=== PATIENT | female | born 1980 | race Two or more races ===

== ENCOUNTER 2016-06-07 01:35 | Day surgery (SDC) | payer MEDICAID ==
[2016-06-07] MEDS ORDERED: IOPAMIDOL 370 (76%) 100 ML VIAL IV ONE (01:36)
[2016-06-07 02:19] LABS: BASO # 0.1 K/mm3 (0.0-0.2); BASO % 0.5 % (0.2-1.0); EOS # 0.2 (0.0-0.5); EOS % 1.4 % (0.9-2.9); HEMATOCRIT 34.6 % (37.0-47.0); HEMOGLOBIN 11.5 gm/l (12.0-16.0); IMM NEUT% 0.3 % (0-1); LYMPH # 3.8 (1.0-4.8); LYMPH % 34.7 % (15-45); MEAN CELL VOLUME 87.4 fl (81.0-99.0); MEAN CORPUSCULAR HGB CONC 33.2 g/dl (33.0-37.0); MEAN PLATELET VOLUME 9.3 fl (7.4-10.4); MONO % 8.8 % (4-12); NEUT % 54.3 % (43-75); PLATELET COUNT 297 K/mm3 (130-400); RED CELL DISTRIBUTION WIDTH 13.8 % (11.5-14.5)
[2016-06-07 02:20] LABS: PH,URINE 6.5 (5.0-8.0); SPECIFIC GRAVITY 1.015 (1.001-1.030); URINE APPEARANCE CLEAR; URINE BILIRUBIN NEGATIVE (NEGATIVE); URINE BLOOD TRACE (NEGATIVE); URINE COLOR YELLOW; URINE GLUCOSE (UA) NEGATIVE (NEGATIVE); URINE LEUKOCYTE ESTERASE NEGATIVE (NEGATIVE); URINE NITRITE NEGATIVE (NEGATIVE); URINE PROTEIN NEGATIVE (NEGATIVE); URINE UROBILINOGEN NORMAL (0-1 mg/dl)
[2016-06-07 02:23] LABS: HCG,QUALITATIVE URINE NEGATIVE
[2016-06-07 02:26] LABS: URINE BACTERIA TRACE; URINE RBC 0-1 /hpf; URINE WBC RARE /hpf
[2016-06-07 02:33] LABS: ALB/GLOB RATIO 1.3 (>1.0); ALBUMIN 3.8 gm/dL (3.5-5.7); CALCIUM 9.1 mg/dL (8.6-10.3)
[2016-06-07] MEDS ORDERED: CEFTRIAXONE 1 GRAM DUPLEX 50 ML IV ONE (04:26)
[2016-06-07] MEDS ORDERED: LACTATED RINGERS 1,000 ML ONE (04:26)
[2016-06-07] MEDS ORDERED: ONDANSETRON 4 MG/2ML 2 ML VIAL ONE ×2 (04:26→10:53)
[2016-06-07] MEDS ORDERED: METRONIDAZOLE 500 MG/NS 100 ML 100 ML IV ONE (04:26)
[2016-06-07] MEDS ORDERED: HYDROMORPHONE HCL 0.5 MG/0.5 ML SYRINGE ONE ×2 (04:26→05:58)
[2016-06-07 05:28] VITALS: BMI 37.3
[2016-06-07] MEDS ORDERED: FLU VACC 2016-17 (36MO-64Y)/PF 60 MCG/0.5 ML SYRINGE IM V ONE (05:31)
[2016-06-07] MEDS ORDERED: MENTHOL/CETYLPYRD 1 EACH LOZENGE PO PRN (05:54)
[2016-06-07] MEDS ORDERED: HYDROMORPHONE HCL 1 MG/ML SYRINGE IV PRN ×3 (05:54→17:23)
[2016-06-07] MEDS ORDERED: LACTATED RINGERS 1,000 ML IV SCH ×2 (05:54→11:45)
[2016-06-07] MEDS ORDERED: ONDANSETRON 4 MG/2ML 2 ML VIAL IV PRN ×3 (05:54→15:00)
[2016-06-07] MEDS ORDERED: BLISTEX LIPSTICK 1 EACH TP PRN (05:54)
[2016-06-07] MEDS ORDERED: ACETAMINOPHEN 650 MG SUP PR PRN (05:54)
[2016-06-07] MEDS ORDERED: METRONIDAZOLE 500 MG/NS 100 ML 500 MG in Premix (NS) 100 ml 1 EACH IV ONE (05:59)
--- NOTE | 2016-06-07 08:31 | CT ---
CT ABDOMEN AND PELVIS WITH CONTRAST HISTORY: Right-sided abdominal pain. TECHNIQUE: Following intravenous administration of 100cc of Isovue-370, contiguous axial images were acquired from the lung bases to the ischial tuberosities. Oral contrast was not administered. COMPARISON: 09/21/2008 FINDINGS: LUNG BASES: No gross airspace consolidation or pleural effusion. LIVER: Fatty infiltration without dominant focal lesion. SPLEEN: No focal lesion. PANCREAS: No focal lesion. ADRENAL GLANDS: No mass effect. KIDNEYS: No collecting system dilatation. Nonobstructive right renal calculus, 4 mm in size. Left renal cyst, 1.3 cm in size. GALLBLADDER: Contracted appearance. BOWEL: Moderate fecal loading. Limited assessment of the distal colon due to decompression. No abnormal small bowel dilatation. APPENDIX: Up to 7 mm in size, fluid-filled without obvious wall thickening or periappendiceal stranding. PELVIC ORGANS: Minimal adnexal cyst formation at the 1.2 cm in size with no dominant lesion. Minimal bladder wall thickening. FREE FLUID: No gross free fluid identified. Anterior abdominal wall: Just above the level of the pubic symphysis notice made of a small focus of skin thickening. Fatty umbilical hernia, increased in size over the interval. ABDOMINOPELVIC LYMPH NODES: No abnormally enlarged lymph nodes identified. ABDOMINAL AORTA: Normal caliber. OSSEOUS STRUCTURES: Findings of lower lumbar disc degeneration, right paracentral protrusion at L4-5. IMPRESSION: 1. Borderline prominence of the appendix without gross inflammatory change; consider follow-up sonography if developing appendicitis is suspected. 2. Minor focus of skin thickening of the anterior abdominal wall seen above the level of the pubic symphysis, early cellulitic change possible. 3. Minor bladder wall thickening, cystitis is possible. 4. Nonobstructive appearance of bowel. Nonobstructive 4 mm right renal calculus. 5. Lower lumbar disc degeneration. 6. Fatty umbilical hernia. Preliminary report relayed to the Emergency Medicine medical service by Dr. Heredia on 06/07/2016 at 0402 hours.
[2016-06-07] MEDS ORDERED: FENTANYL 5 ML ONE (09:39)
[2016-06-07] MEDS ORDERED: MIDAZOLAM HCL 1 MG/ML 2ML VIAL ONE (09:39)
[2016-06-07] MEDS ORDERED: PROPOFOL 20 ML IV ONE (09:41)
[2016-06-07] MEDS ORDERED: ROCURONIUM BROMIDE 10 MG/ML DOSE IV ONE (09:41)
[2016-06-07] MEDS ORDERED: BUPIVACAINE 0.5% W/EPI SDV 30 ML VIAL ONE (09:53)
[2016-06-07] MEDS ORDERED: PRIMARY W/MICRODRIP 60 DROPS/ML ONE (09:55)
[2016-06-07] MEDS ORDERED: GLYCOPYRROLATE 0.2 MG/ML 1ML VIAL ONE (10:39)
[2016-06-07] MEDS ORDERED: NEOSTIGMINE METHYLSULFATE 1 MG/ML DOSE ONE (10:39)
[2016-06-07] MEDS ORDERED: DEXAMETHASONE SOD PHOS 4 MG/1 ML VIAL ONE (10:53)
[2016-06-07] MEDS ORDERED: FENTANYL 100 MCG/2 ML VIAL IV PRN (10:56)
[2016-06-07] MEDS ORDERED: MORPHINE SULFATE 4 MG/ML SYRINGE IV PRN (10:56)
[2016-06-07] MEDS ORDERED: PROMETHAZINE HCL 25 MG/ML VIAL IM PRN (10:56)
[2016-06-07] MEDS ORDERED: KETOROLAC TROMETHAMINE 30 MG/ML 1 ML VIAL ONE (11:18)
[2016-06-07] MEDS ORDERED: ACETAMINOPHEN 325 MG TABLET PO PRN (11:56)
[2016-06-07] MEDS: LACTATED RINGERS 1,000 ML IV SCH (12:14)
[2016-06-07] MEDS: HYDROMORPHONE HCL 0.5 MG/0.5 ML SYRINGE IV PRN ×3 (12:20→13:44)
[2016-06-07] MEDS: KETOROLAC TROMETHAMINE 30 MG/ML 1 ML VIAL IV PRN (19:50)
[2016-06-07] MEDS: OXYCODONE HCL 5 MG TABLET PO PRN (23:18)
[2016-06-08] MEDS: LACTATED RINGERS 1,000 ML IV SCH (03:22)
[2016-06-08] MEDS: KETOROLAC TROMETHAMINE 30 MG/ML 1 ML VIAL IV PRN ×2 (04:00→10:13)
[2016-06-08 07:33] VITALS: BP 110/66
[2016-06-08] MEDS: OXYCODONE HCL 5 MG TABLET PO PRN ×2 (07:39→11:50)
--- NOTE | 2016-06-08 10:09 | PDOC43 ---
- Subjective Subjective: Reports Pain Tolerable, Reports Other (Stayed yesterday because of dizziness, dyspnea. Much better today.), Denies Nausea, Denies Distention - Objective Vital Signs Temperature 97.8 F 06/08/16 07:32 Pulse Rate 69 06/08/16 07:32 Respiratory Rate 16 06/08/16 07:35 Blood Pressure 110/66 06/08/16 07:32 O2 Saturation by Pulse Oximetry 93 06/08/16 07:32 Oxygen Delivery Method Room Air Oxygen Flow Rate 0 Laboratory 06/07/16 02:05 06/07/16 02:05 Active Medication Orders Category Date Time Status Acetaminophen [Tylenol] Med 06/07/16 11:56 Active 650 mg PO Q6H PRN Hydromorphone HCl [Dilaudid] Med 06/07/16 12:05 Active 0.5 - 1 mg IV Q1H PRN Hydromorphone HCl [Dilaudid] Med 06/07/16 17:23 Active 0.5 - 1 mg IV Q1H PRN Ketorolac Tromethamine [Toradol] Med 06/07/16 17:23 Active 30 mg IV Q6H PRN Lactated Ringers 1,000 ml Med 06/07/16 11:56 Active IV 75 mls/hr Ondansetron 4 mg/2ml Vial [Zofran] Med 06/07/16 15:00 Active 4 mg IV Q6H PRN Ondansetron 4 mg/2ml Vial [Zofran] Med 06/07/16 10:56 Active 4 mg IV X1 PRN Oxycodone HCl [Roxicodone] Med 06/07/16 17:23 Active 5 - 10 mg PO Q4H PRN Promethazine HCl [Phenergan] Med 06/07/16 10:56 Active 12.5 - 25 mg IM X1 PRN Sodium Chloride 0.9% Flush [Normal Saline 10ml Flush] Med 06/07/16 12:01 Active 10 ml IV PRN PRN Sodium Chloride 0.9% Flush [Normal Saline 10ml Flush] Med 06/07/16 17:00 Active 10 ml IV Q8HR Intake and Output 06/07/16 06/08/16 06/09/16 06:59 06:59 06:59 Intake Total 200 2841 Output Total 300 2280 Balance -100 561 General: Alert, Oriented x3 Abdomen: Soft, Non-Distended Wound: Dressing Clean/Dry/Intact Psych/Mental Status: Normal Affect - Assessment/ Plan (1) Appendicitis Qualifiers: Appendicitis type: acute appendicitis Status: AcuteAssessment/ Plan: Stable for discharge.
[2016-06-08] MEDS ORDERED: FLU VACC 2016-17 (36MO-64Y)/PF 60 MCG/0.5 ML SYRINGE IM V ONE (10:30)
--- NOTE | 2016-06-08 10:32 | HP ---
ELKE SANDERS [id number] DATE OF ADMISSION: 06/07/2016 CHIEF COMPLAINT: Abdominal pain. HISTORY OF PRESENT ILLNESS: This is a 35-year-old female who presented to the emergency room with a 2 day history of right lower quadrant abdominal pain. Apparently, it has been getting worse. She has had no dysuria, or hematuria. When she did urinate, it causes pressure in her abdomen. She has had no menstrual abnormalities. She was evaluated in the emergency room and a CT scan was obtained. The CT scan was interrupted as possibly early appendicitis. She is noted to have an umbilical hernia. Patient is concerned about appendicitis. Her father had a perforated appendicitis which required him to spend 6 months in the hospital in recuperation. PAST MEDICAL HISTORY: 1. Hypothyroidism. 2. Obesity. PAST SURGICAL HISTORY: None. CURRENT MEDICATIONS: 1. Thyroid medication. 2. Micronesian weight loss medication, but she does not know the name of. ALLERGIES: POSSIBLY PENICILLIN. FAMILY HISTORY: Father with perforated appendicitis. SOCIAL HISTORY: She has not smoked, drink alcohol, or admit to drug use. She is . REVIEW OF SYSTEMS: Constitutional: No complaints. Eyes: No complaints. Ears, nose, throat: No complaints. Cardiac: No complaints. Pulmonary: No complaints. Gastrointestinal: As above. Genitourinary: As above. Gynecologic: No complaints. Musculoskeletal: No complaints. Neurologic: No complaints. Endocrine: No complaints. Hematologic: No complaints. Psychiatric: No complaints. PHYSICAL EXAMINATION: VITAL SIGNS: Temperature is 97.9. Pulse is 75. Blood pressure is 105/63. Respirations are 16. GENERAL: She is awake and alert, appears in no acute distress. HEENT: Head is atraumatic, normocephalic. Eyes: Pupils are equal. Sclera is nonicteric. Oropharynx, no exudate, or erythema seen. NECK: Supple without lymphadenopathy, or thyromegaly. LUNGS: Normal respiratory effort. Lungs clear to auscultation. CARDIAC: Regular rate and rhythm. No murmurs heard. ABDOMEN: Obese. Soft, nondistended. She is tender in the entire right lower quadrant extending from the area above the umbilicus down into the pelvic area. It appears she does not have rebound tenderness, or involuntary guarding. No masses are palpable. I cannot clearly feel the umbilical hernia that I know is present based on CT scan report. She just has minimal generalized tenderness. PELVIC: Exam not performed. RECTAL: Exam not performed. EXTREMITIES: Without cyanosis, clubbing or edema. LABORATORIES: Sodium is 35, potassium 3.6, chloride 100, carbon dioxide is 28, BUN 8, creatinine 0.5, and glucose 114. Liver function tests are normal. White blood cell count is 11. Hemoglobin is 11.5. Platelets are 297. ASSESSMENT: 1. Right lower quadrant abdominal pain possible early appendicitis. 2. Hypothyroid. PLAN: I have discussed the options of observation and antibiotic treatment for possible early appendicitis versus laparoscopic appendectomy. She is very concerned about appendicitis and wants to proceed with surgery. We discussed the procedure. We discussed risks of bleeding, infection, and injury to the intestines. The possibility of a completely normal appendix and possible need to convert to an open procedure. She expressed understanding and is willing to proceed. We will give her antibiotics, and proceed to the operating room when available. JOB #: [id number] [id number]/jesi
[2016-06-08] MEDS ORDERED: KETOROLAC TROMETHAMINE 30 MG/ML 1 ML VIAL IV PRN (11:12)
[2016-06-08] MEDS ORDERED: OXYCODONE HCL 5 MG TABLET PO PRN (11:12)
[2016-06-08] MEDS ORDERED: HYDROMORPHONE HCL 1 MG/ML SYRINGE IV PRN (11:12)
--- NOTE | 2016-06-08 15:14 | OP ---
ELKE SANDERS [id number] DATE OF OPERATION: 06/07/2016 PREOPERATIVE DIAGNOSIS: Right lower quadrant abdominal pain. POSTOPERATIVE DIAGNOSES: 1. Early acute appendicitis. 2. Uterine fibroid. PROCEDURE PERFORMED: Laparoscopic appendectomy. SURGEON: Johan Cantu MD ANESTHESIA: General endotracheal with Flako Sanford INDICATIONS: This is a 35-year-old female who presents with a 2 day history of right lower quadrant abdominal pain. She has leukocytosis and CAT scan suggests an early appendicitis. DESCRIPTION OF PROCEDURE: With informed consent she was taken to the operating room where she was laid supine on the operating room table. General endotracheal anesthetic was administered. The abdomen was prepped and draped in the usual fashion. A local anesthetic was administered below the umbilicus. An incision was made. I dissected down to a hernia sac. This was excised at the level of fascia. There is preperitoneal fat present. Sutures of Surgilon were placed in the fascia edges and a Francesca port was placed. A pneumoperitoneum was created. Local anesthetic was administered in the suprapubic region, also left lower quadrant. Incisions were made, and 5-mm ports were placed. The appendix was identified. There was quite a bit fatty mesenteric tissue around it. I was able to create a defect in the mesentery adjacent to the cecum. An Endo CAT stapler was used to divide the appendix at that point. The mesoappendix was then divided with the Endo CAT stapler. We did have bleeding from the staple line. Some metal clips were required. The appendix was placed within an Endo catch bag and removed through the infraumbilical port site. The right lower quadrant was irrigated. We appeared to have adequate hemostasis. Note was made of some possible uterine fibroids. No significant ovarian cyst, or other cause for right lower quadrant pain identified. Ports were removed and the pneumoperitoneum evacuated. The infraumbilical hernia defect was closed with [id number] sutures of 0-Surgilon in a transverse fashion. The other fascial defects were small. All skin wounds were irrigated and closed with subcuticular #4-0 Monocryl. Mastisol and Steri-Strips were placed. Sterile dressings were applied. She tolerated the procedure, and was taken to the recovery room in stable condition. A note was made that needle, instrument and lap counts were reported as correct at the time of closure. JOB #: [id number]/jesi
--- NOTE | 2016-06-11 12:56 | SURGPATH ---
[facility] [address] [place] [id number] Patient Name: ELKE SANDERS MR#: [id number] : 1980 Gender: F Specimen #: [id number] Collected: 06/07/2016 Received: 06/10/2016 Reported: 06/11/2016 Submitting Phys: MICHAEL SAM Copy To Phys: [facility] Clinical History / Pre-Operative Diagnosis: ACUTE APPENDICITIS Specimen Source / Surgical Procedure Performed: APPENDIX Interpretation: APPENDIX, APPENDECTOMY: - ACUTE APPENDICITIS Electronically Signed Out Gautam Burgess M.D. Gross Description: The specimen is received in a formalin filled container labeled with the patient's name and "appendix". A vermiform appendix is 6.0 x 1.0 cm. The attached focally hemorrhagic periappendiceal fat is 5.5 x 2.0 x 1.7 cm. The serosa is smooth and ludwig. A surgical staple line is removed and the adjacent section is inked black and submitted as margin. The lumen is patent and filled with soft red-ludwig hemorrhagic and purulent material. There is no nodule or fecalith. Three patient access representative sections are submitted in one cassette including a cross section through the appendiceal surgical margin, a central cross section and a longitudinal section through the tip. Otf Chaudhary. Microscopic Description: The sections show appendix with mucosal ulceration and acute inflammation. [id number]: [id number] K35.89
== END 2016-06-08 12:20 | disposition home or self-care (01) ==
LOC: ED 01:35 → SDC 04:22 → MS 04:22 → SDC 06-08 12:20
PROVIDERS: ATTEND Surgery
PROC: 0DTJ4ZZ Resection of Appendix, Percutaneous Endoscopic Approach (ICD-10-PCS; principal; 2016-06-07)
PROC: 3E0234Z Introduction of Serum, Toxoid and Vaccine into Muscle, Percutaneous Approach (ICD-10-PCS; 2016-06-07)
DX: K35.80 Unspecified acute appendicitis (principal); K42.9 Umbilical hernia without obstruction or gangrene; E03.9 Hypothyroidism, unspecified; E66.9 Obesity, unspecified; Z88.0 Allergy status to penicillin; D25.9 Leiomyoma of uterus, unspecified; Z23 Encounter for immunization; R42 Dizziness and giddiness; R06.00 Dyspnea, unspecified
CPT/HCPCS: 44970; 90471; 90682; 83690; 81025; 85025; 80053; 81001; 74177; 94010; 96375 ×3; 99285 ×2; 96365; J3010 ×2; J1100; A9270 ×4; J1885 ×4; J2250; J2405 ×2; J7120 ×4; J7030; Q9967; J1170 ×5; J0696